=== PATIENT | male | born 1980 | race Caucasian/White ===

== ENCOUNTER 2022-02-17 21:24 | Emergency (ER) | payer BC, SELFPAY ==
--- NOTE | ~2022-02-17 | XR_ITS ---
EXAMINATION: XR chest 2V DATE: 02/17/2022 22:16 INDICATION: Chest pain. TECHNIQUE: Frontal and lateral views of the chest were obtained. COMPARISON: None. FINDINGS: The chest demonstrates clear lungs without pneumonia, pleural effusion, or pneumothorax. Th e heart size is normal. IMPRESSION: 1. No acute cardiopulmonary disease. Reviewed, dictated and finalized at location A.
--- NOTE | 2022-02-17 21:31 | ECG_ITS ---
Measurements Intervals [place] Rate: 115 P: 56 NE: 154 QRS: 67 QRSD: 98 T: 65 QT: 330 QTc: 458 Interpretive Statements SINUS TACHYCARDIA MINIMAL ST DEPRESSION [0.025+ mV ST DEPRESSION] ABNORMAL RHYTHM ECG NO PREVIOUS ECG AVAILABLE FOR COMPARISON Electronically Signed On 02-18-2022 13:06:28 CDT by Momo Meredith M.D.
[2022-02-17 21:38] VITALS: BP 156/108; PULSE 100; RESP 20; TEMP 36.9; O2SAT 96
[2022-02-17 21:51] LABS: Basophils Absolute Auto 0.1 K/mm3 (0.0-0.1); Eosinophils Absolute Auto 0.7 K/mm3 (0-0.3); Eosinophils Percent Auto 8.3 % (0-4.4); Hematocrit 37.1 % (42.0-52.0); Immature Granulocyte Absolute 0.02 K/mm3 (0.00-0.031); Immature Granulocyte Percent A 0.3 % (0-0.5); Lymphocytes Absolute Auto 1.85 K/mm3 (0.9-3.2); Lymphocytes Percent Auto 23.6 % (18.3-44.2); Mean Corpuscular HGB Conc 32.3 g/dl (32-36); Mean Corpuscular Hemoglobin 30.5 pg (26-34); Mean Corpuscular Volume 94.2 fl (80-100); Monocytes Absolute Auto 0.7 K/mm3 (0.1-0.6); Monocytes Percent Auto 8.8 % (2.6-8.5); Neutrophils Absolute Auto 4.6 K/mm3 (1.3-6.7); Platelet Count Result 398 k/mm3 (150-375); Red Blood Count 3.94 M/mm3 (4.6-6.20); Red Cell Distribution Width 13.2 % (11.5-14.5); White Blood Count 7.8 K/mm3 (4.5-10.0)
[2022-02-17 22:01] LABS: Alanine Aminotransferase 21 U/L (6-50); Albumin Level 4.4 g/dL (3.5-5.1); Alkaline Phosphatase 106 U/L (38-126); Anion Gap 13 mmol/L (8-16); Aspartate Amino Transferase 31 U/L (17-59); Bilirubin,Total 0.5 mg/dL (0.2-1.3); Blood Urea Nitrogen 17 mg/dL (9-20); Calcium 9.1 mg/dL (8.4-10.2); Carbon Dioxide 30 mmol/L (22-30); Chloride 103 mmol/L (98-107); Estimated CRCL calculation 59 ml/min; Estimated Glomerular Filt Rate 56; Glucose 108 mg/dL (65-110); Lipase 31 U/L (23-300); Potassium 4.1 mmol/L (3.4-5.0); Sodium 146 mmol/L (137-145)
[2022-02-17 22:06] LABS: INR 1.1; Partial Thromboplastin Time 27.9 SECONDS (22.3-36.8); Prothrombin Time 13.3 Seconds (11.1-14.7)
[2022-02-17 22:13] LABS: Troponin I < 0.012 ng/mL (0.000-0.034)
--- NOTE | 2022-02-17 22:48 | ED.GENADULT ---
HPI - General Adult General Chief complaint: Chest Pain Stated complaint: CP HX OF DRUG ABUSE Time Seen by Provider: 02/17/22 22:01 History of Present Illness HPI narrative: Is a 41-year-old gentleman who presents emergency department with chief complaint of chest pain. Patient reports that for some time he has been having discomfort in his chest and tonight it got worse whenever he was apprehended by the police and issued several swelling warrants. Patient states the pain is been in his chest for over a year but has been worse over the last few months the patient reports the pain is sharp reports is worse with inspiration and worse with movement Related Data Allergies Allergy/AdvReac Type Severity Reaction Status Date / Time No Known Allergies Allergy Verified 02/17/22 22:49 Review of Systems Review of Systems: A 10 system review of systems was completed on the patient and is negative except for what is stated in the HPI. Nursing and ancillary documentation was reviewed. Exam Narrative: GENERAL: Well-appearing, well-nourished, and in no acute distress. HEAD: Normocephalic, atraumatic. EYES: PERRLA and EOMI. ENT: Nares clear, no rhinorrhea or epistaxis. Mucous membranes moist. NECK: Supple. CHEST: Clear to auscultation. No respiratory distress. Chest wall is tender to palpation HEART: Regular rate and rhythm. No murmur heard. Normal peripheral pulses. ABDOMEN: Soft, nontender, nondistended, normal active bowel sounds. EXTREMITIES: Normal range of motion. No edema. SKIN: Warm, dry, no rash. NEURO: No focal deficits. Alert and oriented x3. PSYCH: Normal mood and affect. Course Course Emergency Course: The patient is feeling much better after receiving IV Toradol. It was discussed with the patient to stay for a repeat delta troponin the patient stated that he did not want to stay at this time it was explained that we could possibly miss a very low likelihood of a elevation at that time although the patient is extremely low risk. Vital Signs Vital signs: Vital Signs Temperature 36.9 C 02/17/22 21:38 Pulse Rate 100 02/17/22 21:38 Respiratory Rate 20 02/17/22 21:38 Blood Pressure 156/108 H 02/17/22 21:38 Pulse Oximetry 96 02/17/22 21:38 Temperature 36.9 C 02/17/22 21:38 Pulse Rate 100 02/17/22 21:38 Respiratory Rate 20 02/17/22 21:38 Blood Pressure 156/108 H 02/17/22 21:38 Pulse Oximetry 96 02/17/22 21:38 Medical Decision Making Vital Signs Vital Signs: Vital Signs Temperature 36.9 C 02/17/22 21:38 Pulse Rate 100 02/17/22 21:38 Respiratory Rate 20 02/17/22 21:38 Blood Pressure 156/108 H 02/17/22 21:38 Pulse Oximetry 96 02/17/22 21:38 Temperature 36.9 C 02/17/22 21:38 Pulse Rate 100 02/17/22 21:38 Respiratory Rate 20 02/17/22 21:38 Blood Pressure 156/108 H 02/17/22 21:38 Pulse Oximetry 96 02/17/22 21:38 Lab Data Result diagrams: 02/17/22 21:46 02/17/22 21:46 Labs: Lab Results 02/17/22 02/17/22 02/17/22 Range/Units 21:46 21:46 21:46 WBC 7.8 (4.5-10.0) K/mm3 RBC 3.94 L (4.6-6.20) M/mm3 Hgb 12.0 L (14.0-18.0) g/dL Hct 37.1 L (42.0-52.0) % MCV 94.2 (80-100) fl MCH 30.5 (26-34) pg MCHC 32.3 (32-36) g/dl RDW 13.2 (11.5-14.5) % Plt Count 398 H (150-375) k/mm3 MPV 9.0 (7.4-10.4) fl Immature Gran % (Auto) 0.3 (0-0.5) % Neut % (Auto) 58.0 (45.5-73.1) % Lymph % (Auto) 23.6 (18.3-44.2) % [place] % (Auto) 8.8 H (2.6-8.5) % Eos % (Auto) 8.3 H (0-4.4) % Baso % (Auto) 1.0 (0.2-1.2) % Lymph # (Auto) 1.85 (0.9-3.2) K/mm3 [place] # (Auto) 0.7 H (0.1-0.6) K/mm3 Eos # (Auto) 0.7 H (0-0.3) K/mm3 Baso # (Auto) 0.1 (0.0-0.1) K/mm3 Abs Immat Gran (auto) 0.02 (0.00-0.031) K/mm3 Absolute Neuts (auto) 4.6 (1.3-6.7) K/mm3 Absolute Nucleated RBC 0.0 (0.0-0.012) K/mm3 Nucleated RBC % 0.0 (0.0-0.2) % PT
[2022-02-17] MEDS: Please add drug allergy info to patient profile. 1 EACH XX (22:50)
[2022-02-17] MEDS: KETOROLAC 15 MG/ML VIAL (*BKC) IV PUSH (22:50)
== END 2022-02-18 00:03 | disposition home or self-care (01) ==
PROVIDERS: Emergency Provider Emergency Medicine
DX: R07.89 Other chest pain (principal)
CPT/HCPCS: 36415; 71046; 80053; 83690; 84484; 85025; 85610; 85730; 93005; 96374; 99284; J1885